=== PATIENT | male | born 1980 | race African-American/Black ===

== ENCOUNTER 2018-12-03 02:55 | Emergency (ER) | payer SELFPAY ==
[~2018-12-03] VITALS: Ht 175.3 cm; Wt 95.7 kg
--- NOTE | 2018-12-03 03:02 | ED.ADGEN ---
Adult General Chief Complaint Chief Complaint ".. I think .. I got a hemorrhoid.. " HPI HPI Patient is a 38 year old male who presents with above hx and complaints possible hemorrhoids. Pt. has had recent hard stools, and earlier last week episodes of diarrhea. no previous history of hemorrhoids. No history of rectal sex. No history of Crohn's or ulcerative colitis. Normally healthy. Patient does drink alcohol. The patient has noticed some red streaking with hard stools. Review of Systems Review of Systems Constitutional: Denies fever or chills [] Eyes: Denies change in visual acuity, redness, or eye pain [] HENT: Denies nasal congestion or sore throat [] Respiratory: Denies cough or shortness of breath [] Cardiovascular: No additional information not addressed in HPI [] GI: Denies abdominal pain, nausea, vomiting, bloody stools or diarrhea [] complaints of rectal pain and possible hemorrhoid : Denies dysuria or hematuria [] Musculoskeletal: Denies back pain or joint pain [] Integument: Denies rash or skin lesions [] Neurologic: Denies headache, focal weakness or sensory changes [] Endocrine: Denies polyuria or polydipsia [] All other systems were reviewed and found to be within normal limits, except as documented in this note. Family History Family History Noncontributory Current Medications Current Medications Current Medications Medications (Trade) Dose Ordered Sig/Michael Start Time Stop Time Status Last Admin Dose Admin Hydrocortisone Acetate (Anucort-Hc) 25 mg 1X ONCE 12/03/18 04:30 12/03/18 04:31 DC 12/03/18 04:15 25 MG Lidocaine/ Prilocaine (Emla) 1 darron 1X ONCE 12/03/18 04:30 12/03/18 04:31 DC 12/03/18 04:16 1 DARRON Allergies Allergies Allergies Coded Allergies Type Severity Reaction Last Updated Verified No Known Drug Allergies 12/03/18 No Physical Exam Physical Exam Constitutional: moderately acute distress, non-toxic appearance. [] HENT: Normocephalic, atraumatic, bilateral external ears normal, oropharynx moist, no oral exudates, nose normal. [] Eyes: PERRLA, EOMI, conjunctiva normal, no discharge. [] Neck: Normal range of motion, no tenderness, supple, no stridor. [] Cardiovascular:Heart rate regular rhythm, no murmur [] Lungs & Thorax: Bilateral breath sounds clear to auscultation [] Abdomen: Bowel sounds normal, soft, no tenderness, no masses, no pulsatile masses. []The pt. does have a very small hemorrhoid on exam , less 1 cm. . No active bleeding. Skin: Warm, dry, no erythema, no rash. [] Back: No tenderness, no CVA tenderness. [] Extremities: No tenderness, no cyanosis, no clubbing, ROM intact, no edema. [] Neurologic: Alert and oriented X 3, normal motor function, normal sensory function, no focal deficits noted. [] Psychologic: Affect anxious, judgement normal, mood normal. [] EKG EKG [] Radiology/Procedures Radiology/Procedures [] Course & Med Decision Making Course & Med Decision Making Pertinent Labs and Imaging studies reviewed. (See chart for details) Patient to do sitz baths. Patient to apply Anusol suppositories up to 4 times a day. Patient dupivacaine up to 4 times a day. The patient follow-up primary care. Patient keep stools soft. Patient advised may need follow-up with surgery for banding or surgical correction of the hemorrhoid. [] Final Impression Final Impression 1. Small Hemorrhoid[] Dragon Disclaimer Dragon Disclaimer This electronic medical record was generated, in whole or in part, using a voice recognition dictation system. Discharge Summary Visit Information Final Diagnosis Problems Medical Problems: (1) Hemorrhoid Status: Acute Brief Hospital Course Allergies Allergies Coded Allergies Type Severity Reaction Last Updated Verified No Known Drug Allergies 12/03/18 No Brief Hospital Course Mr. Velásquez is a 38 old male who presented with very small hemorrhoid. Discharge Information Condition at Discharge: Stable Disposition/Orders: D/C to Home Dischare Medications Current Medications Lidocaine/ Prilocaine (Emla) 1 darron 1X ONCE TP Last administered on 12/03/18at 04:16; Admin Dose 1 DARRON; Start 12/03/18 at 04:30; Stop 12/03/18 at 04:31; Status DC Hydrocortisone Acetate (Anucort-Hc) 25 mg STK-MED ONCE .ROUTE ; Start 12/03/18 at 04:03; Stop 12/03/18 at 04:04; Status DC Hydrocortisone Acetate (Anucort-Hc) 25 mg 1X ONCE DC Last administered on 12/03at 04:15; Admin Dose 25 MG; Start 12/03/18 at 04:30; Stop 12/03/18 at 04:31; Status DC Active Scripts Active Dibucaine 28 Gm Oint...g. 28 Gm RC QIDPRN PRN Anusol-Hc (Hydrocortisone Acetate) 25 Mg Supp.rect 25 Mg RC QIDPRN PRN Armando Disclaimer This chart was dictated in whole or in part using Voice Recognition software in a busy, high-work load, and often noisy Emergency Department environment. It may contain unintended and wholly unrecognized errors or omissions. JARETH MEJIA MD Dec 03, 2018 03:02
[2018-12-03] MEDS ORDERED: HYDR25SU18 RC (03:34)
[2018-12-03] MEDS ORDERED: DIBU28OI RC (03:34)
[2018-12-03] MEDS ORDERED: HYDROCORTISONE ACETATE 25 MG SUPP.RECT ONE (04:03)
[2018-12-03 04:15] VITALS: BP 112/62
[2018-12-03] MEDS ORDERED: LIDOCAINE/PRILOCAINE TOPICAL CREAM 5GM TUBE. TP ONE (04:30)
[2018-12-03] MEDS ORDERED: HYDROCORTISONE ACETATE 25 MG SUPP.RECT PR ONE (04:30)
== END 2018-12-03 04:30 | disposition home or self-care (01) ==
LOC: ER 02:55
DX: K64.9 Unspecified hemorrhoids (principal)
CPT/HCPCS: 99283

== ENCOUNTER 2022-01-22 17:38 | Emergency (ER) | payer SELFPAY ==
[~2022-01-22] VITALS: Ht 175.3 cm; Wt 81.8 kg
[~2022-01-22 17:38] MED LIST: DIBU28OI RC; HYDR25SU18 RC
--- NOTE | 2022-01-22 18:48 | PHYS DOC ---
Past History Past Medical History: Alcoholism (MARCI GOMES APRN) Past Surgical History: No Surgical History (MARCI GOMES APRN) Alcohol Use: Heavy Drug Use: None (MARCI GOMES APRN) General Adult EDM: Chief Complaint: HEMORRHOIDS HPI: HPI: Patient is a 41-year-old male who presents to the emergency department with rectal pain that has been intermittent for 1 month. Patient reports that the pain is worse when he has a bowel movement. He has been using [id number] hemorrhoid cream and witch laurie. He denies any nausea, vomiting, abdominal pain, fevers, urinary symptoms, urethral discharge, rectal bleeding. (MARCI GOMES APRN) Review of Systems: Review of Systems: Constitutional: See HPI GI: See HPI : see HPI (MARCI GOMES APRN) Allergies: Allergies: Allergies Coded Allergies Type Severity Reaction Last Updated Verified No Known Drug Allergies 12/03/18 No (MARCI GOMES APRN) Physical Exam: PE: Constitutional: Well developed, well nourished, no acute distress, non-toxic appearance. [] HENT: Normocephalic, atraumatic, bilateral external ears normal, oropharynx moist, no oral exudates, nose normal. [] Eyes: PERRL, EOMI, conjunctiva normal, no discharge. [] Neck: Normal range of motion, no stridor Cardiovascular:Heart rate regular rhythm, no murmur [] Lungs & Thorax: Bilateral breath sounds clear to auscultation [] Abdomen: Bowel sounds normal, soft, no tenderness, no masses, no pulsatile masses. [] Rectal: No external hemorrhoids noted, no masses, redness to anus. Patient is noted to have internal rectal hemorrhoid with SUZAN. Skin: Warm, dry, no erythema, no rash. [] Back: No tenderness, normal range of motion Extremities: No tenderness, no cyanosis, no clubbing, ROM intact, no edema. [] Neurologic: Alert and oriented X 3, normal motor function, normal sensory function, no focal deficits noted. [] Psychologic: Affect normal, judgement normal, mood normal. [] (MARCI GOMES APRN) Current Patient Data: Vital Signs: Vital Signs Date Time Temp Pulse Resp B/P (MAP) Pulse Ox O2 Delivery O2 Flow Rate FiO2 01/22/22 17:38 97.8 78 16 119/78 (92) 98 Room Air (MARCI GOMES APRN) EKG: EKG: [] (MARCI GOMES APRN) Radiology/Procedures: Radiology/Procedures: [] (MARCI GOMES APRN) Heart Score: C/O Chest Pain: N/A Risk Factors: Risk Factors: DM, Current or recent (<one month) smoker, HTN, HLP, family history of CAD, obesity. Risk Scores: Score 0 - 3: 2.5% MACE over next 6 weeks - Discharge Home Score 4 - 6: 20.3% MACE over next 6 weeks - Admit for Clinical Observation Score 7 - 10: 72.7% MACE over next 6 weeks - Early Invasive Strategies (MARCI GOMES APRN) Course & Med Decision Making: Course & Med Decision Making Pertinent Labs and Imaging studies reviewed. (See chart for details) Patient presents to the emergency department today for rectal pain following bow el movement. Patient is noted to have an internal hemorrhoid which will be treated with Anusol. Patient advised to follow-up with his primary care provider for additional screening exams. I discussed with patient all findings and diagnostic testing as well as the need to follow-up with PCP for further evaluation and treatment or return to the ER if any new or worsening symptoms. Strict return precautions were also discussed at length. Patient voiced understanding and agreement with the plan. Patient is hemodynamically stable at the time of disposition. (MARCI GOMES APRN) Course & Med Decision Making Did not see or evaluate patient. Did not discuss patient with [facility]. Generally agree with ACTION FINISHER's work-up and disposition per note (GABRIELA ALDANA MD) Dragon Disclaimer: Dragphillip Disclaimer: This electronic medical record was generated, in whole or in part, using a voice recognition dictation system. (MARCI GOMES APRN) Departure Departure: Impression: Primary Impression: Hemorrhoid Qualified Codes: K64.9 - Unspecified hemorrhoids Disposition: HOME / SELF CARE / HOMELESS Condition: GOOD Referrals: PCP,NO (PCP) Patient Instructions: Hemorrhoids Additional Instructions: You are seen in the emergency department today for rectal pain after straining with a bowel movement. You are noted to have an internal hemorrhoid. You are being discharged home with Anusol, please use this as directed. Please avoid straining with bowel movements and you may need to add MiraLAX to your daily regimen if you notice that you are having several hard stools. Follow-up with your primary care provider regarding recommended health screenings such as colonoscopies and prostate cancer screenings. Return to the emergency department if you develop abdominal pain, rectal bleeding, intractable nausea or vomiting or any new or worsening concerns. Scripts Hydrocortisone Acetate (ANUSOL-HC) 25 Mg Supp.rect 1 SUPP RC BID for hemorrhoid for 7 Days, #14 SUPP 0 Refills Prov: MARCI GOMES APRN 01/22/22 MARCI GOMES APRN January 22, 2022 18:48 GABRIELA ALDANA MD January 22, 2022 19:49
[2022-01-22] MEDS ORDERED: HYDR25SU18 RC (18:56)
== END 2022-01-22 19:02 | disposition home or self-care (01) ==
LOC: ER 17:38
DX: K64.8 Other hemorrhoids (principal); F10.20 Alcohol dependence, uncomplicated; Y90.9 Presence of alcohol in blood, level not specified
CPT/HCPCS: 99283